=== PATIENT | female | born 1970 | race Caucasian/White ===

== ENCOUNTER 2018-08-04 18:06 | Emergency (ER) | payer MEDICAID ==
[~2018-08-04] VITALS: Ht 157.5 cm; Wt 81.6 kg
[2018-08-04 18:15] VITALS: BP 150/65
[2018-08-04] MEDS ORDERED: NACL 0.9% 1,000 ML IV ONE (19:10)
[2018-08-04] MEDS ORDERED: KETOROLAC 30 MG/ML VIAL IVP ONE (19:10)
[2018-08-04] MEDS ORDERED: LORazepam 2 MG/ML VIAL IVP ONE (19:55)
[2018-08-04 20:11] LABS: APPEARANCE,URINE CLEAR (CLEAR); BILIRUBIN,URINE NEGATIVE (NEGATIVE); BLOOD, URINE TRACE-L (NEGATIVE); COLOR,URINE YELLOW (YELLOW); LEUKOCYTE ESTERASE ,URINE NEGATIVE (NEGATIVE); NITRITE, URINE NEGATIVE (NEGATIVE); UGLUCOSE NEGATIVE (NEGATIVE)
[2018-08-04 20:14] LABS: RBC,URINE 0-5 (RARE) /HPF (0-5); WBC,URINE 0-5 (RARE) /HPF (0-5)
[2018-08-04 20:41] VITALS: BP 143/93
== END 2018-08-04 20:41 | disposition home or self-care (01) ==
LOC: MED 18:06
DX: J11.1 Influenza due to unidentified influenza virus with other respiratory manifestations (principal); F41.9 Anxiety disorder, unspecified
CPT/HCPCS: 81001; 81025; 96374; 96375; 99283; J1885; J2060; J7030

== ENCOUNTER 2019-04-22 04:35 | Emergency (ER) | payer MEDICAID ==
[~2019-04-22] VITALS: Ht 157.5 cm; Wt 74.8 kg
[2019-04-22 04:45] VITALS: BP 147/90
--- NOTE | 2019-04-22 04:45 | NUR ---
PT TAKEN TO BED 2
--- NOTE | 2019-04-22 04:54 | NUR ---
Dr. Dunbar examining patient.
--- NOTE | 2019-04-22 04:59 | NUR ---
48 Y/O FEMALE C/O RIGHT LOWER JAW TOOTH PAIN WITH SEVERE EDEMA. 10/10 PAIN. WORSE OVER PAST TWO DAYS- 3 DAYS. PATIENT STATES THAT "IT COULD BE FROM THE FILLINGS". PAIN IS A 10/10 ACUTE PAIN. PAIN RADIATES FROM LEFT JAW TO RIGHT JAW. SHE ALSO STATED THAT SHE HAS BEEN TAKING IBURPOFEN WITH NO RELIEF AND ANTIBIOTICS PRESCRIBED FROM A YEAR AGO. DENIES N/V/D. FACIAL GRIMACING IS NOTED. ER MD MADE AWARE OF STATUS. SIDE RAILSX1. HX: ANXIETY RX:DENIES NKDA
[2019-04-22] MEDS ORDERED: AMOXICILLIN 500 MG CAP PO ONE (05:05)
[2019-04-22] MEDS ORDERED: KETOROLAC 60 MG/2 ML VIAL IM ONE (05:05)
[2019-04-22 06:56] VITALS: BP 127/73
--- NOTE | 2019-04-22 06:56 | NUR ---
Patient discharged with v/s stable. Written and verbal after care instructions given and explained. Patient alert, oriented and verbalized understanding of instructions. Ambulatory with steady gait. All questions addressed prior to discharge. ID band removed. Patient advised to follow up with PMD. Rx of TRAMADOL HYDROCHLORIDE 50MG; AMOXICILLIN 500MG CAPSULE AND MOTRIN 800MG given. Patient educated on indication of medication including possible reaction and side effects. Opportunity to ask questions provided and answered.
== END 2019-04-22 06:56 | disposition home or self-care (01) ==
LOC: MED 04:35
DX: K04.7 Periapical abscess without sinus (principal); I10 Essential (primary) hypertension; F41.9 Anxiety disorder, unspecified
CPT/HCPCS: 96372; 99283; J1885

== ENCOUNTER 2019-07-16 03:26 | Emergency (ER) | payer MEDICAID ==
[~2019-07-16] VITALS: Ht 157.5 cm; Wt 74.8 kg
--- NOTE | 2019-07-16 03:35 | NUR ---
PT TAKEN TO BED 11
[2019-07-16 03:43] VITALS: BP 125/76
--- NOTE | 2019-07-16 03:49 | NUR ---
48 Y/O FEMALE BIB C/O LEFT FOOT PAIN ON THE 4TH TOE. PER PATIENT, "I DROPPED A BOTTLE OF SHAMPOO ON MY FOOT". PAIN IS AN 8/10 SHARP, ACUTE PAIN. DENIES N/V/D. PATIENT IS ABLE TO AMBULATE WITHOUT ANY ASSISTANCE. <3 SECONDS CAPILLARY REFILL; +RANGE OF MOTION. NO NOTED EDEMA; SKIN IS COOL AND MOIST. ERMD MADE AWARE OF STATUS. SIDE RAILSX1. PMH: CELLULITIS; ANXIETY RX:ANXIETY NKDA
[2019-07-16 05:34] VITALS: BP 118/78
== END 2019-07-16 05:34 | disposition home or self-care (01) ==
LOC: MED 03:26
DX: S90.122A Contusion of left lesser toe(s) without damage to nail, initial encounter (principal); Z98.890 Other specified postprocedural states; W20.8XXA Other cause of strike by thrown, projected or falling object, initial encounter; Y93.89 Activity, other specified; Y92.89 Other specified places as the place of occurrence of the external cause; Y99.8 Other external cause status
CPT/HCPCS: 73660; 99283; Q0092

== ENCOUNTER 2020-02-04 01:19 | Emergency (ER) | payer MEDICAID ==
[~2020-02-04] VITALS: Ht 157.5 cm; Wt 75.7 kg
[2020-02-04 01:30] VITALS: BP 137/93
--- NOTE | 2020-02-04 01:40 | NUR ---
49 Y/O FEMALE C/O RT FLANK PAIN X 0800 YESTERDAY. RATAES PAIN 9/10 AND DESCRIBES IT SHOOTING AND SHARP. A&OX4. STEADY GAIT. VSS. DENIES TAKING ANY PAIN MEDS. ABD IS SOFT, FLAT, NONTENDER, ACTIVE BS. DENIES ANY DYSURIA, BLOOD IN URINE, FEVER, OR VOMITTING. +NAUSEA. NKDA. PMH: ANXIETY.
--- NOTE | 2020-02-04 02:07 | NUR ---
YANELIS SOLIMAN AT BEDSIDE TO RESHMA PT.
[2020-02-04] MEDS ORDERED: KETOROLAC 60 MG/2 ML VIAL IM ONE (02:10)
[2020-02-04] MEDS ORDERED: MORPHINE SULFATE 4 MG/ML SYR IM ONE (02:35)
[2020-02-04 02:55] VITALS: BP 137/93
== END 2020-02-04 02:55 | disposition home or self-care (01) ==
LOC: MED 01:19
DX: R10.9 Unspecified abdominal pain (principal); F41.9 Anxiety disorder, unspecified; Z98.890 Other specified postprocedural states
CPT/HCPCS: 81002; 81025; 96372; 99284; J1885; J2270

== ENCOUNTER 2020-08-04 18:00 | Emergency (ER) | payer MEDICAID ==
[~2020-08-04] VITALS: Ht 157.5 cm; Wt 47.6 kg
[2020-08-04 18:37] VITALS: BP 149/99
--- NOTE | 2020-08-04 19:40 | NUR ---
PCR COLLECTED AND TAKEN TO LAB.
--- NOTE | 2020-08-04 19:45 | NUR ---
Patient discharged with v/s stable. Written and verbal after care instructions given and explained. Patient alert, oriented and verbalized understanding of instructions. Ambulatory with steady gait. All questions addressed prior to discharge. ID band removed. Patient advised to follow up with PMD. Rx of TYLENOL, IMMODIUM, MACROBID given. Patient educated on indication of medication including possible reaction and side effects. Opportunity to ask questions provided and answered.
== END 2020-08-04 19:45 | disposition home or self-care (01) ==
LOC: MED 18:00
DX: N39.0 Urinary tract infection, site not specified (principal); Z20.828 Contact with and (suspected) exposure to other viral communicable diseases; F41.9 Anxiety disorder, unspecified; Z98.890 Other specified postprocedural states
CPT/HCPCS: 99283; U0003

== ENCOUNTER 2020-08-06 08:07 | Emergency (ER) | payer MEDICAID ==
[~2020-08-06] VITALS: Ht 157.5 cm; Wt 74.8 kg
[2020-08-06 09:03] VITALS: BP 171/90
[2020-08-06 09:25] VITALS: BP 171/90
--- NOTE | 2020-08-06 09:25 | NUR ---
Patient discharged with v/s stable. Written and verbal after care instructions given and explained. Patient alert, oriented and verbalized understanding of instructions. Ambulatory with steady gait. All questions addressed prior to discharge. ID band removed. Patient advised to follow up with PMD. Rx of Tylenol with codeine, Azithromycin, Acetaminophen given. Patient educated on indication of medication including possible reaction and side effects. Opportunity to ask questions provided and answered.
== END 2020-08-06 09:25 | disposition home or self-care (01) ==
LOC: MED 08:07
DX: U07.1 COVID-19 (principal); M79.10 Myalgia, unspecified site; R68.83 Chills (without fever); F41.9 Anxiety disorder, unspecified; F32.9 Major depressive disorder, single episode, unspecified
CPT/HCPCS: 99283

== ENCOUNTER 2020-11-09 00:47 | Emergency (ER) | payer MEDICAID ==
[~2020-11-09] VITALS: Ht 157.5 cm; Wt 76.2 kg
[2020-11-09 00:51] VITALS: BP 122/80
--- NOTE | 2020-11-09 00:55 | NUR ---
PT AMBULATED TO BED #12
--- NOTE | 2020-11-09 01:04 | NUR ---
PATIENT 50 Y.O. BIB SELF FOR C/O 05/10 LEFT SIDE/RIB CAGE PAIN S/P FALLING AND LANDING ON SIDE OF BATHTUB X 3 HOURS AGO. PATIENT REPORTS PAIN IS SHARP AND CONTINUOUS. NO NOTED SWELLING OR BRUISING TO THE SITE. SKIN IS WARM, DRY AND INTACT. PATIENT REPORTS "I ALSO STEPPED ON A NAIL WHILE I WAS LIMPING IN PAIN." BILATERAL LUNG SOUNDS CLEAR. SEE COMPLETE ASSESSMENT FOR FURTHER DETAILS. MED HX: ANXIETY ALLERGIES: NKA
--- NOTE | 2020-11-09 01:07 | NUR ---
ERMD AT BEDSIDE.
[2020-11-09] MEDS ORDERED: MORPHINE SULFATE 4 MG/ML SYR IM ONE (01:10)
--- NOTE | 2020-11-09 01:15 | NUR ---
PATIENT AMBULATED TO RESTROOM WITHOUT DIFFICULTY.
--- NOTE | 2020-11-09 01:21 | NUR ---
ERMD AT BEDSIDE PERFORMING US.
--- NOTE | 2020-11-09 01:24 | NUR ---
PATIENT TAKEN TO XRAY VIA W.C.
--- NOTE | 2020-11-09 01:35 | NUR ---
PATIENT RETURNED FROM XRAY VIA [facility].
[2020-11-09] MEDS ORDERED: ONDANSETRON 4 MG ODT PO ONE (01:40)
[2020-11-09] MEDS ORDERED: ACET-9527 PO (01:51)
[2020-11-09] MEDS ORDERED: LID5T TP (01:51)
[2020-11-09 02:01] VITALS: BP 122/80
--- NOTE | 2020-11-09 02:01 | NUR ---
Patient discharged with v/s stable. Written and verbal after care instructions given and explained. Patient alert, oriented and verbalized understanding of instructions. Ambulatory with steady gait. All questions addressed prior to discharge. ID band removed. Patient advised to follow up with PMD. Rx of HYDROCODONE/ACETAMINOPHEN, LIDOCAINE HYD. given. Patient educated on indication of medication including possible reaction and side effects. Opportunity to ask questions provided and answered.
== END 2020-11-09 02:01 | disposition home or self-care (01) ==
LOC: MED 00:47
DX: S20.212A Contusion of left front wall of thorax, initial encounter (principal); W01.0XXA Fall on same level from slipping, tripping and stumbling without subsequent striking against object, initial encounter; Y93.89 Activity, other specified; Y92.89 Other specified places as the place of occurrence of the external cause; Y99.8 Other external cause status
CPT/HCPCS: 71101; 90471; 90715; 96372; 99284; J2270; Q0162

== ENCOUNTER 2021-07-07 17:04 | Emergency (ER) | payer MEDICAID ==
[~2021-07-07] VITALS: Ht 157.5 cm; Wt 75.3 kg
[~2021-07-07 17:04] MED LIST: ACET-9527 PO; LID5T TP
[2021-07-07 17:20] VITALS: BP 141/87
--- NOTE | 2021-07-07 17:27 | NUR ---
Pt to wait in lobby for next available bed.
--- NOTE | 2021-07-07 20:34 | NUR ---
PT AMBULATED TO BED #12
--- NOTE | 2021-07-07 20:41 | NUR ---
50 YO/F BIB SELF W C/O OF R FOOT/LEG PAIN 8/10 ACHE LIKE NON-RADIATING, INTERMITTENT, +REDNESS AND SWELLING X2 DAYS S/P SCRATCHING LEG. SCRATCHES, REDNESS, SWELLING NOTED TO LOWER R LEG/FOOT. PT REPORTS PAIN WORSENS UPON WALKING. PT AMBULATORY W STEADY GAIT. +SENSATION, CAP REFIL <3SEC. PT DENIES ANY FEVERS, CHILLS, N/V/D. PT LAYING IN BED VIANEY DIN LOWEST POSITION W X2 SIDERAILS UP FOR PT SAFETY. BREAHITNG EVEN AND UNLABORED. NAD NOTED, WILL CONTINUE TO MONITOR. PMH:ANXIETY, DEPRESSION NKA
[2021-07-07] MEDS ORDERED: KETOROLAC 60 MG/2 ML VIAL IM ONE (21:20)
[2021-07-07] MEDS ORDERED: IBUP-2213 PO (21:26)
[2021-07-07] MEDS ORDERED: CEPH-588 PO (21:26)
[2021-07-07 21:46] VITALS: BP 143/83
--- NOTE | 2021-07-07 21:46 | NUR ---
Patient discharged with v/s stable. Written and verbal after care instructions given and explained. Patient alert, oriented and verbalized understanding of instructions. Ambulatory with steady gait. All questions addressed prior to discharge. ID band removed. Patient advised to follow up with PMD. Rx of KEFLEX, IBUPROFEN given. Patient educated on indication of medication including possible reaction and side effects. Opportunity to ask questions provided and answered.
== END 2021-07-07 21:46 | disposition home or self-care (01) ==
LOC: MED 17:04
DX: L03.115 Cellulitis of right lower limb (principal); F41.9 Anxiety disorder, unspecified; F32.9 Major depressive disorder, single episode, unspecified
CPT/HCPCS: 96372; 99283; J1885

== ENCOUNTER 2023-03-23 06:30 | Emergency (ER) | payer MEDICAID ==
[~2023-03-23] VITALS: Ht 157.5 cm; Wt 76.7 kg
[~2023-03-23 06:30] MED LIST changes: +CEPH-588 PO; +IBUP-2213 PO
[2023-03-23 06:47] VITALS: BP 149/83; PULSE 85; RESP 16; TEMP 97.8; O2SAT 100
[2023-03-23] MEDS ORDERED: LIDOCAINE MPF 1% 10 MG/ML VIAL INJ ONE (07:10)
[2023-03-23] MEDS ORDERED: IBUPROFEN 400 MG TAB PO ONE (07:10)
[2023-03-23] MEDS ORDERED: NAPR-1704 PO (07:21)
[2023-03-23 07:35] VITALS: BP 149/83; PULSE 85; RESP 16; TEMP 97.8; O2SAT 100
== END 2023-03-23 07:35 | disposition home or self-care (01) ==
LOC: MED 06:30
DX: M62.830 Muscle spasm of back (principal); Z79.899 Other long term (current) drug therapy
CPT/HCPCS: 20552; 99283

== ENCOUNTER 2023-07-24 08:52 | Emergency (ER) | payer MEDICAID ==
[~2023-07-24] VITALS: Ht 157.5 cm; Wt 73.9 kg
[~2023-07-24 08:52] MED LIST changes: +NAPR-1704 PO
[2023-07-24 09:03] VITALS: BP 118/71; PULSE 76; RESP 14; TEMP 97.3
[2023-07-24] MEDS ORDERED: ACETAMINOPHEN EXTRA STRENGTH 500 MG TAB PO ONE (09:30)
[2023-07-24] MEDS ORDERED: ONDANSETRON 4 MG TAB PO ONE (09:30)
[2023-07-24] MEDS ORDERED: KETOROLAC 30 MG/ML VIAL IM ONE (09:30)
[2023-07-24 10:00] LABS: BASOPHILS % (AUTO) 0.4 % (0.0-2.0); EOSINOPHILS % (AUTO) 0.7 % (0.0-4.0); HEMATOCRIT 38.5 % (36-48); HEMOGLOBIN 13.1 g/dL (12.0-16.0); LYMPHOCYTES # (AUTO) 1.2 K/uL (2.5-16.5); LYMPHOCYTES % (AUTO) 20.5 % (20.5-51.1); MEAN CORPUSCULAR HEMOGLOBIN 31 pg (27-31); MEAN CORPUSCULAR HGB CONC 34 g/dL (33-37); MEAN CORPUSCULAR VOLUME 89.7 fL (80-94); MONOCYTES # (AUTO) 0.4 K/uL (0.8-1.0); MONOCYTES % (AUTO) 7.5 % (1.7-9.3); NEUTROPHILS # (AUTO) 4.2 K/uL (1.8-7.7); NEUTROPHILS % (AUTO) 70.9 % (42.2-75.2); PLATELET COUNT (AUTO) 268 K/uL (140-450); RED BLOOD CELL COUNT(AUTO) 4.29 MIL/uL (4.20-5.40); RED CELL DISTRIBUTION WIDTH 13.8 % (11.6-13.7); WHITE BLOOD COUNT (AUTO) 5.9 K/uL (4.8-10.8)
[2023-07-24 10:17] LABS: ANION GAP 11.3 (8-16); CALCIUM 8.6 mg/dL (8.5-10.1); CARBON DIOXIDE 28.2 mmol/L (21-32); CREATININE 0.7 mg/dL (0.6-1.3); POTASSIUM 3.5 mmol/L (3.5-5.1)
[2023-07-24 10:22] LABS: ALBUMIN 3.4 g/dL (3.4-5.0); BILIRUBIN,DIRECT 0.1 mg/dL (0.0-0.3); TOTAL BILIRUBIN 0.4 mg/dL (0.0-1.0); TOTAL PROTEIN, SERUM 7.9 g/dL (6.4-8.2)
[2023-07-24] MEDS ORDERED: ONDA-188 PO (11:06)
[2023-07-24 12:31] LABS: FLU A ANTIGEN negative (NEGATIVE); FLU B ANTIGEN negative (NEGATIVE)
== END 2023-07-24 11:21 | disposition home or self-care (01) ==
LOC: MED 08:52
DX: K52.9 Noninfective gastroenteritis and colitis, unspecified (principal); Z20.822 Contact with and (suspected) exposure to COVID-19; Z79.899 Other long term (current) drug therapy; Z79.1 Long term (current) use of non-steroidal anti-inflammatories (NSAID); Z79.2 Long term (current) use of antibiotics
CPT/HCPCS: 36415; 74176; 80048; 80076; 83690; 85025; 87426; 87804; 96372; 99285; J1885; Q0162